=== PATIENT | female | born 1950 | race Caucasian/White ===

== ENCOUNTER 2019-09-17 11:05 | Emergency (ER) | payer MEDICARE, MEDICAID ==
[~2019-09-17] VITALS: Ht 165.1 cm; Wt 79.0 kg
[~2019-09-17 11:05] MED LIST: PROT20 PO
[2019-09-17] MEDS ORDERED: IPRATROPIUM BROMIDE (0.02%) 0.5MG/2.5ML NEB HHN STA (12:08)
[2019-09-17] MEDS ORDERED: ALBUTEROL (0.083%) 2.5MG/3ML NEB HHN STA (12:08)
[2019-09-17] MEDS ORDERED: IBUPROFEN 600MG TABLET PO ONE (12:15)
[2019-09-17 12:31] VITALS: BP 135/76
== END 2019-09-17 14:00 | disposition home or self-care (01) ==
LOC: ER 11:05
DX: J06.9 Acute upper respiratory infection, unspecified (principal); K21.9 Gastro-esophageal reflux disease without esophagitis; Z90.49 Acquired absence of other specified parts of digestive tract
CPT/HCPCS: 71045; 94640; 99283; J7611